=== PATIENT | male | born 1950 | race Caucasian/White ===

== ENCOUNTER 2024-05-03 12:11 | Inpatient (IN) ==
--- NOTE | 2024-05-03 12:52 | DR.GENAD ---
HPI Time Seen Time Seen by Provider: 05/03/24 12:51 PCP Primary Care Physician: Dr. Young/[facility] Complaint/Symptoms Chief Complaint:: Pt states that home hospice nurse placed a figueroa catheter this morning and afterwards he started having a large amount of bleeding from the penis. EMS estimates that pt has lost approximately 350ml blood. Denies any pain. Self Treatment fo Chief Complaint: Pt was given TXA 2gm IV x 1 by EMS prior to arrival. COVID-19 Coronavirus risk:travel/contact w/high risk person: No Has patient experienced Coronavirus symptoms: No Source History Provided: Patient and EMS Mode of Arrival Mode of Arrival: EMS Timing Onset of Chief Complaint: 05/03/24 PMH PMH Past Medical History: Yes Past Medical History: CHF and Hypertension Past Medical History Comment: afib Past Surgical History: Yes Past Surgical History Comment: pacemaker/defibrillator Family History History of Family Medical Conditions: No Social History Does patient currently use any type of tobacco product: No Have you used tobacco products in the last 12 months: No Type of Tobacco Use: None Does any household member use tobacco: No Alcohol Use: None Do you use any recreational Drugs:: No Lives With: Family Lives Where: Home Travel Risk Coronavirus risk:travel/contact w/high risk person: No Has patient experienced Coronavirus symptoms: No Infectious screening In the last 2 months have you had wt loss of >10#?: NO Have you had fever, night sweats or hemotysis?: No Have you traveled outside the country in the last 6 months?: No Isolation: Standard PE Vital Signs Vitals: Vital Signs Temperature 98.1 F Pulse Rate 82 Pulse Rate 79 Pulse Rate 83 Pulse Rate 79 Pulse Rate 84 Pulse Rate 78 Pulse Rate 76 Pulse Rate 74 Pulse Rate 78 Pulse Rate 81 Pulse Rate 97 Respiratory Rate 20 Blood Pressure 133/63 Blood Pressure 93/57 Blood Pressure 109/68 Blood Pressure 112/73 Blood Pressure 113/67 Blood Pressure 113/67 Blood Pressure 125/72 Blood Pressure 125/72 Blood Pressure 125/72 Blood Pressure 123/70 Blood Pressure 112/58 Blood Pressure 112/58 Blood Pressure 137/63 Blood Pressure 118/69 Blood Pressure 106/66 Blood Pressure 114/58 Blood Pressure 114/74 Blood Pressure 113/74 O2 Sat by Pulse Oximetry 77 O2 Sat by Pulse Oximetry 96 O2 Sat by Pulse Oximetry 96 O2 Sat by Pulse Oximetry 94 O2 Sat by Pulse Oximetry 94 O2 Sat by Pulse Oximetry 83 O2 Sat by Pulse Oximetry 94 O2 Sat by Pulse Oximetry 98 O2 Sat by Pulse Oximetry 97 O2 Sat by Pulse Oximetry 97 O2 Sat by Pulse Oximetry 96 O2 Sat by Pulse Oximetry 95 ROR Labs Reviewed 05/03/24 13:10 05/03/24 13:10 Laboratory: WBC 6.9 X10^3/uL (3.6-10.0) 05/03/24 13:10 RBC 4.16 X10^6/uL (4.7-6.0) L 05/03/24 13:10 Hgb 13.3 g/dL (13.5-18.0) L 05/03/24 13:10 Hct 39.5 % (42.0-54.0) L 05/03/24 13:10 MCV 95.1 fL (80.0-100.0) 05/03/24 13:10 MCH 31.9 pg (27.0-34.0) 05/03/24 13:10 MCHC 33.6 g/dL (33.0-35.0) 05/03/24 13:10 RDW 21.6 % (11.6-16.5) H 05/03/24 13:10 Plt Count 180 X10^3/uL (150.0-450.0) 05/03/24 13:10 Plt Count Comment Adequate (ADEQUATE) 05/03/24 13:10 MPV 8.3 fL (7.4-11.0) 05/03/24 13:10 Neut % (Auto) 63.6 % (42.0-75.0) 05/03/24 13:10 Lymph % (Auto) 16.5 % (21.0-51.0) L 05/03/24 13:10 [place] % (Auto) 17.7 % (0.0-13.0) H 05/03/24 13:10 Eos % (Auto) 1.2 % (0.9-2.9) 05/03/24 13:10 Baso % (Auto) 1.0 % (0.2-1.0) 05/03/24 13:10 Neut # (Auto) 4.4 x10^3/uL (2.2-4.8) 05/03/24 13:10 Lymph # (Auto) 1.1 X10^3/uL (1.3-2.9) L 05/03/24 13:10 [place] # (Auto) 1.2 x10^3/uL (0.3-0.8) H 05/03/24 13:10 Eos # (Auto) 0.1 x10^3/uL (0.0-0.2) 05/03/24 13:10 Baso # (Auto) 0.1 X10^3/uL (0.0-0.1) 05/03/24 13:10 Absolute Nucleated RBC 0.1 /100WBC 05/03/24 13:10 Plt Morphology Comment Normal (NORMAL) 05/03/24 13:10 RBC Morphology Abnormal (NORMAL) 05/03/24 13:10 Anisocytosis 1+ A 05/03/24 13:10 PT 26.8 SECONDS (11.8-14.3) 05/03/24 13:10 INR Target Range - 05/03/24 13:10 INR 2.58 (0.8-1.3) H 05/03/24 13:10 APTT 37.2 SECONDS (22.9-36.5) H 05/03/24 13:10 PTT Comment - 05/03/24 13:10 Sodium 137 mmol/L (136-145) 05/03/24 13:10 Corrected Sodium TNP 05/03/24 13:10 Potassium 4.6 mmol/L (3.5-5.1) 05/03/24 13:10 Chloride 98 mmol/L (98-107) 05/03/24 13:10 Carbon Dioxide 33.9 mmol/L (21-32) H 05/03/24 13:10 BUN 26 mg/dL (7-18) H 05/03/24 13:10 Creatinine 1.39 mg/dL (0.70-1.30) H 05/03/24 13:10 Est GFR (MDRD) Af Amer > 60 (>60) 05/03/24 13:10 Est GFR (MDRD) Non-Af 53 (>60) L 05/03/24 13:10 Glucose 83 mg/dL (65-99) 05/03/24 13:10 Calcium 8.8 mg/dL (8.5-10.1) 05/03/24 13:10 Corrected Calcium 9.4 mg/dL (8.5-10.1) 05/03/24 13:10 Total Bilirubin 5.00 mg/dL (0.2-1.0) H 05/03/24 13:10 AST 28 Units/L (15-37) 05/03/24 13:10 ALT 20 Units/L (12-78) 05/03/24 13:10 Alkaline Phosphatase 104 Units/L (46-116) 05/03/24 13:10 Total Protein 6.9 g/dL (6.4-8.2) 05/03/24 13:10 Albumin 3.3 g/dL (3.4-5.0) L 05/03/24 13:10 Globulin 3.6 g/dL (2.5-4.5) 05/03/24 13:10 Albumin/Globulin Ratio 0.9 Ratio (1.1-2.1) L 05/03/24 13:10 Specimen Type Clean catch urine 05/03/24 12:46 Urine Color Red (YELLOW) 05/03/24 12:46 Urine Appearance Cloudy (CLEAR) 05/03/24 12:46 Urine pH 7.0 (5.0 - 8.0) 05/03/24 12:46 Ur Specific [place] 1.010 (1.000-1.030) 05/03/24 12:46 Urine Protein 3+ (NEGATIVE) 05/03/24 12:46 Urine Glucose (UA) 1+ (NEGATIVE) 05/03/24 12:46 Urine Ketones Negative (NEGATIVE) 05/03/24 12:46 Urine Blood 5+ (NEGATIVE) 05/03/24 12:46 Urine Nitrite Negative (NEGATIVE) 05/03/24 12:46 Urine Bilirubin Negative (NEGATIVE) 05/03/24 12:46 Urine Urobilinogen Normal (NORMAL) 05/03/24 12:46 Ur Leukocyte Esterase 1+ (NEGATIVE) 05/03/24 12:46 Urine RBC Tntc /HPF (0-3) A 05/03/24 12:46 Urine WBC 0-2 /HPF (0-5) 05/03/24 12:46 Ur Squamous Epith Cells Rare /HPF (NEGATIVE) 05/03/24 12:46 Urine Bacteria Trace /HPF (NEGATIVE) 05/03/24 12:46 Ur Culture Indicated? No/not indicated 05/03/24 12:46 Opioid Opioid Risk Tool Age (Vega box if 16-45): No History of Preadolescent Sexual Abuse: No Total: 0 Total Score Risk Category: Low Risk Copyright: Robert WONG predicting aberrant behaviors Discharge Plan Diagnosis Discharge Problem: Urethral bleeding, CHF (congestive heart failure) Discharge Plan Patient Disposition: 09 ADMITTED INPATIENT Condition: Stable Orders to Discharge Patient Discharge Orders: Transfer (Routine); Ordered 05/03/24 Ordered By: LETHA COELHO
[2024-05-03 13:06] LABS: BILIRUBIN,URINE NEGATIVE (NEGATIVE); BLOOD/HEMOGLOBIN,URINE 5+ (NEGATIVE); GLUCOSE, URINE 1+ (NEGATIVE); KETONES,URINE NEGATIVE (NEGATIVE); LEUKOCYTE ESTERASE ,URINE 1+ (NEGATIVE); NITRITES,URINE NEGATIVE (NEGATIVE); PROTEIN,URINE 3+ (NEGATIVE); UROBILINOGEN,URINE NORMAL (NORMAL)
[2024-05-03 13:15] LABS: APPEARANCE,URINE CLOUDY (CLEAR); BACTERIA,URINE TRACE /HPF (NEGATIVE); COLOR,URINE RED (YELLOW); RBC,URINE TNTC /HPF (0-3); SQUAMOUS EPITHELIAL CELL,UR RARE /HPF (NEGATIVE)
[2024-05-03 13:19] LABS: BASOPHILS # (AUTO) 0.1 X10^3/uL (0.0-0.1); EOSINOPHILS # (AUTO) 0.1 x10^3/uL (0.0-0.2); EOSINOPHILS % (AUTO) 1.2 % (0.9-2.9); HEMATOCRIT 39.5 % (42.0-54.0); HEMOGLOBIN 13.3 g/dL (13.5-18.0); LYMPHOCYTES # (AUTO) 1.1 X10^3/uL (1.3-2.9); LYMPHOCYTES % (AUTO) 16.5 % (21.0-51.0); MEAN CORPUSCULAR HEMOGLOBIN 31.9 pg (27.0-34.0); MEAN CORPUSCULAR HGB CONC 33.6 g/dL (33.0-35.0); MEAN CORPUSCULAR VOLUME 95.1 fL (80.0-100.0); MEAN PLATELET VOLUME 8.3 fL (7.4-11.0); MONOCYTES # (AUTO) 1.2 x10^3/uL (0.3-0.8); MONOCYTES % (AUTO) 17.7 % (0.0-13.0); NEUTROPHILS # (AUTO) 4.4 x10^3/uL (2.2-4.8); NEUTROPHILS % (AUTO) 63.6 % (42.0-75.0); PLATELET COUNT 180 X10^3/uL (150.0-450.0); RED BLOOD COUNT 4.16 X10^6/uL (4.7-6.0); RED CELL DISTRIBUTION WIDTH 21.6 % (11.6-16.5); WHITE BLOOD COUNT 6.9 X10^3/uL (3.6-10.0)
[2024-05-03 13:28] LABS: INR 2.58 (0.8-1.3)
[2024-05-03 13:40] LABS: ALANINE AMINOTRANSFERASE 20 Units/L (12-78); ALBUMIN 3.3 g/dL (3.4-5.0); ALKALINE PHOSPHATASE 104 Units/L (46-116); ASPARTATE AMINO TRANSFERASE 28 Units/L (15-37); BLOOD UREA NITROGEN 26 mg/dL (7-18); CALCIUM 8.8 mg/dL (8.5-10.1); CARBON DIOXIDE 33.9 mmol/L (21-32); CHLORIDE 98 mmol/L (98-107); COR CA(FOR HYPOALB) 9.4 mg/dL (8.5-10.1); CREATININE 1.39 mg/dL (0.70-1.30); GLUCOSE 83 mg/dL (65-99); POTASSIUM 4.6 mmol/L (3.5-5.1); SODIUM 137 mmol/L (136-145); TOTAL PROTEIN 6.9 g/dL (6.4-8.2); eGFR NON BLACK RACES 53 (>60)
[2024-05-03 13:46] LABS: PLATELET MORPHOLOGY COMMENT NORMAL (NORMAL)
[2024-05-03 13:47] LABS: ANISOCYTOSIS 1+
[2024-05-03] MEDS: LASIX IVP ONE (16:29)
[2024-05-03 18:21] VITALS: BMI 29.9
[2024-05-04 04:32] LABS: BASOPHILS % (AUTO) 0.8 % (0.2-1.0); EOSINOPHILS # (AUTO) 0.1 x10^3/uL (0.0-0.2); EOSINOPHILS % (AUTO) 1.8 % (0.9-2.9); HEMATOCRIT 37.4 % (42.0-54.0); HEMOGLOBIN 12.4 g/dL (13.5-18.0); LYMPHOCYTES # (AUTO) 0.9 X10^3/uL (1.3-2.9); LYMPHOCYTES % (AUTO) 15.5 % (21.0-51.0); MEAN CORPUSCULAR HEMOGLOBIN 31.3 pg (27.0-34.0); MEAN CORPUSCULAR VOLUME 94.9 fL (80.0-100.0); MEAN PLATELET VOLUME 8.4 fL (7.4-11.0); MONOCYTES # (AUTO) 1.3 x10^3/uL (0.3-0.8); MONOCYTES % (AUTO) 20.6 % (0.0-13.0); NEUTROPHILS # (AUTO) 3.7 x10^3/uL (2.2-4.8); NEUTROPHILS % (AUTO) 61.3 % (42.0-75.0); PLATELET COUNT 186 X10^3/uL (150.0-450.0); RED BLOOD COUNT 3.94 X10^6/uL (4.7-6.0); RED CELL DISTRIBUTION WIDTH 21.6 % (11.6-16.5); WHITE BLOOD COUNT 6.1 X10^3/uL (3.6-10.0)
[2024-05-04 04:41] LABS: ALANINE AMINOTRANSFERASE 16 Units/L (12-78); ALKALINE PHOSPHATASE 99 Units/L (46-116); ASPARTATE AMINO TRANSFERASE 19 Units/L (15-37); BLOOD UREA NITROGEN 24 mg/dL (7-18); CALCIUM 8.5 mg/dL (8.5-10.1); CARBON DIOXIDE 36.2 mmol/L (21-32); CHLORIDE 100 mmol/L (98-107); COR CA(FOR HYPOALB) 9.3 mg/dL (8.5-10.1); CREATININE 1.43 mg/dL (0.70-1.30); GLUCOSE 80 mg/dL (65-99); MAGNESIUM 2.5 mg/dL (2.0-2.9); SODIUM 139 mmol/L (136-145); TOTAL PROTEIN 6.3 g/dL (6.4-8.2); eGFR NON BLACK RACES 52 (>60)
[2024-05-04 05:17] LABS: ANISOCYTOSIS 1+; PLATELET MORPHOLOGY COMMENT NORMAL (NORMAL)
[2024-05-04] MEDS: LEXAPRO PO SCH (10:28)
[2024-05-04] MEDS: LEXAPRO ONE (10:33)
--- NOTE | 2024-05-04 11:41 | DR.H&P ---
H&P History & Physical for Day of: H&P Date: 05/04/24 Chief Complaint Chief Complaint: penile bleeding, hematuria History of Present Illness History of Present Illness: Mr Butcher is a 73y/o male with a PMH of CHF, cardiomyopathy, HTN, HLD, Type 2 DM, Chronic anti-coagulation use presented with penile bleeding and hematuria. Patient is currently on hospice and was noted to have large blood clots in the urine as the nurse was placing a figueroa at home. He was sent to the ER for evaluation. Patient is a very poor historian. He was seen here on 04/05/24 for scrotal swelling and bleeding. He was transferred to [place] at the time. He is not sure if he was suppose to follow up with Urology. He is not sure what was done there or what was the cause of the bleeding. ER work up showed chronic LE pitting edema, Cr 1.43. INR 2.58. UA was negative for infection. He was admitted for hematuria and CHF exacerbation. He was given one dose of lasix. Patient's BP has been low-normal. He currently has a PureWick catheter and urine is dark brown/red in color. Labs/imaging: -WBC 6.1 Hgb 12.4 BUN/Cr 24/1.43 INR 2.58 Plan: Admit to med-surg. Monitor UOP and bleeding. No active penile bleeding at this time. Hold Xarelto. Hold anti-hypertensives due to low BP. Replace electrolytes as per protocol. Check BNP and CXR. Wean O2 as tolerated. Monitor AM labs/imaging. Past Medical History Past Medical History: CHF and Hypertension Social History Does patient currently use any type of tobacco product: No Have you used tobacco products in the last 12 months: No Type of Tobacco Use: None Does any household member use tobacco: No Alcohol Use: None Drug Use: None Medications Home Medications: Home Medications Medication Instructions Recorded Confirmed Type bumetanide 1 mg tablet 1 mg PO BID 04/05/24 05/03/24 History carvedilol 3.125 mg tablet 3.125 mg PO BID 04/05/24 05/03/24 History dapagliflozin propanediol 10 mg 10 mg PO QDAY 04/05/24 05/03/24 History tablet (Farxiga) escitalopram oxalate 10 mg tablet 10 mg PO QDAY 04/05/24 05/03/24 History rivaroxaban 20 mg tablet (Xarelto) 20 mg PO QDAY 04/05/24 05/03/24 History sacubitril 49 mg-valsartan 51 mg 1 tab PO BID 04/05/24 05/03/24 History tablet (Entresto) Allergies Allergies Allergy/AdvReac Type Severity Reaction Status Date / Time No Known Allergies Allergy Verified 05/03/24 12:41 Labs 05/04/24 04:10 05/04/24 04:10 Labs: Laboratory WBC 6.1 X10^3/uL (3.6-10.0) 05/04/24 04:10 RBC 3.94 X10^6/uL (4.7-6.0) L 05/04/24 04:10 Hgb 12.4 g/dL (13.5-18.0) L 05/04/24 04:10 Hct 37.4 % (42.0-54.0) L 05/04/24 04:10 MCV 94.9 fL (80.0-100.0) 05/04/24 04:10 MCH 31.3 pg (27.0-34.0) 05/04/24 04:10 MCHC 33.0 g/dL (33.0-35.0) 05/04/24 04:10 RDW 21.6 % (11.6-16.5) H 05/04/24 04:10 Plt Count 186 X10^3/uL (150.0-450.0) 05/04/24 04:10 Plt Count Comment Adequate (ADEQUATE) 05/04/24 04:10 MPV 8.4 fL (7.4-11.0) 05/04/24 04:10 Neut % (Auto) 61.3 % (42.0-75.0) 05/04/24 04:10 Lymph % (Auto) 15.5 % (21.0-51.0) L 05/04/24 04:10 [place] % (Auto) 20.6 % (0.0-13.0) H 05/04/24 04:10 Eos % (Auto) 1.8 % (0.9-2.9) 05/04/24 04:10 Baso % (Auto) 0.8 % (0.2-1.0) 05/04/24 04:10 Neut # (Auto) 3.7 x10^3/uL (2.2-4.8) 05/04/24 04:10 Lymph # (Auto) 0.9 X10^3/uL (1.3-2.9) L 05/04/24 04:10 [place] # (Auto) 1.3 x10^3/uL (0.3-0.8) H 05/04/24 04:10 Eos # (Auto) 0.1 x10^3/uL (0.0-0.2) 05/04/24 04:10 Baso # (Auto) 0.0 X10^3/uL (0.0-0.1) 05/04/24 04:10 Absolute Nucleated RBC 0.1 /100WBC 05/04/24 04:10 Total Counted 100 05/04/24 04:10 Neutrophils % (Manual) 62 % (39-76) 05/04/24 04:10 Lymphocytes % (Manual) 20 % (13-43) 05/04/24 04:10 Monocytes % (Manual) 16 % (4-9) H 05/04/24 04:10 Eosinophils % (Manual) 2 % (0-6) 05/04/24 04:10 Plt Morphology Comment Normal (NORMAL) 05/04/24 04:10 RBC Morphology Abnormal (NORMAL) 05/04/24 04:10 Anisocytosis 1+ A 05/04/24 04:10 PT 26.8 SECONDS (11.8-14.3) 05/03/24 13:10 INR Target Range - 05/03/24 13:10 INR 2.58 (0.8-1.3) H 05/03/24 13:10 APTT 37.2 SECONDS (22.9-36.5) H 05/03/24 13:10 PTT Comment - 05/03/24 13:10 Sodium 139 mmol/L (136-145) 05/04/24 04:10 Corrected Sodium TNP 05/04/24 04:10 Potassium 4.0 mmol/L (3.5-5.1) 05/04/24 04:10 Chloride 100 mmol/L (98-107) 05/04/24 04:10 Carbon Dioxide 36.2 mmol/L (21-32) H 05/04/24 04:10 BUN 24 mg/dL (7-18) H 05/04/24 04:10 Creatinine 1.43 mg/dL (0.70-1.30) H 05/04/24 04:10 Est GFR (MDRD) Af Amer > 60 (>60) 05/04/24 04:10 Est GFR (MDRD) Non-Af 52 (>60) L 05/04/24 04:10 Glucose 80 mg/dL (65-99) 05/04/24 04:10 Calcium 8.5 mg/dL (8.5-10.1) 05/04/24 04:10 Corrected Calcium 9.3 mg/dL (8.5-10.1) 05/04/24 04:10 Magnesium 2.5 mg/dL (2.0-2.9) 05/04/24 04:10 Total Bilirubin 4.90 mg/dL (0.2-1.0) H 05/04/24 04:10 AST 19 Units/L (15-37) 05/04/24 04:10 ALT 16 Units/L (12-78) 05/04/24 04:10 Alkaline Phosphatase 99 Units/L (46-116) 05/04/24 04:10 Total Protein 6.3 g/dL (6.4-8.2) L 05/04/24 04:10 Albumin 3.0 g/dL (3.4-5.0) L 05/04/24 04:10 Globulin 3.3 g/dL (2.5-4.5) 05/04/24 04:10 Albumin/Globulin Ratio 0.9 Ratio (1.1-2.1) L 05/04/24 04:10 Specimen Type Clean catch urine 05/03/24 12:46 Urine Color Red (YELLOW) 05/03/24 12:46 Urine Appearance Cloudy (CLEAR) 05/03/24 12:46 Urine pH 7.0 (5.0 - 8.0) 05/03/24 12:46 Ur Specific [place] 1.010 (1.000-1.030) 05/03/24 12:46 Urine Protein 3+ (NEGATIVE) 05/03/24 12:46 Urine Glucose (UA) 1+ (NEGATIVE) 05/03/24 12:46 Urine Ketones Negative (NEGATIVE) 05/03/24 12:46 Urine Blood 5+ (NEGATIVE) 05/03/24 12:46 Urine Nitrite Negative (NEGATIVE) 05/03/24 12:46 Urine Bilirubin Negative (NEGATIVE) 05/03/24 12:46 Urine Urobilinogen Normal (NORMAL) 05/03/24 12:46 Ur Leukocyte Esterase 1+ (NEGATIVE) 05/03/24 12:46 Urine RBC Tntc /HPF (0-3) A 05/03/24 12:46 Urine WBC 0-2 /HPF (0-5) 05/03/24 12:46 Ur Squamous Epith Cells Rare /HPF (NEGATIVE) 05/03/24 12:46 Urine Bacteria Trace /HPF (NEGATIVE) 05/03/24 12:46 Ur Culture Indicated? No/not indicated 05/03/24 12:46 Review of Systems Constitutional: No Symptoms Reported Respiratory: Shortness of Breath Cardiovascular: Edema Gastrointestinal: No Symptoms Reported Genitourinary: Hematuria Musculoskeletal: No Symptoms Reported Skin: No Symptoms Reported Neurological: No Symptoms Reported Physical Exam Vital Signs: Vital Signs Temperature 97.6 F Temperature 97.3 F Pulse Rate [Left Brachial] 71 Pulse Rate [Left Brachial] 77 Respiratory Rate 18 Respiratory Rate 19 Blood Pressure [Left Arm] 104/59 Blood Pressure [Left Arm] 96/62 O2 Sat by Pulse Oximetry 90 O2 Sat by Pulse Oximetry 95 Oriented: Normal Respiratory: Diminished Throughout Cardiovascular: Normal and Edema Auscultation: Bowel Sounds: Normal Palpation: Normal Tenderness: Normal Skin: Normal Musculoskeletal: Normal Psychiatric: Normal Mood Description: Calm Affect: Normal Speech Pattern: Clear and Appropriate Assessment/Plan (1) Hypotension: Qualifiers: Hypotension type: unspecified hypotension type Qualified Code(s): I95.9 - Hypotension, unspecified Status: Acute (2) Hematuria: Qualifiers: Hematuria type: unspecified type Qualified Code(s): R31.9 - Hematuria, unspecified Status: Acute (3) CHF (congestive heart failure): Qualifiers: Heart failure type: unspecified Heart failure chronicity: unspecified Qualified Code(s): I50.9 - Heart failure, unspecified Status: Chronic (4) Current use of watermaster anticoagulation: Status: Chronic Review H&P Reviewed: Yes Patient was examined?: Yes
[2024-05-05 04:32] LABS: BASOPHILS # (AUTO) 0.1 X10^3/uL (0.0-0.1); BASOPHILS % (AUTO) 0.9 % (0.2-1.0); EOSINOPHILS # (AUTO) 0.1 x10^3/uL (0.0-0.2); EOSINOPHILS % (AUTO) 1.6 % (0.9-2.9); HEMATOCRIT 37.4 % (42.0-54.0); HEMOGLOBIN 12.5 g/dL (13.5-18.0); LYMPHOCYTES % (AUTO) 14.7 % (21.0-51.0); MEAN CORPUSCULAR HEMOGLOBIN 31.8 pg (27.0-34.0); MEAN CORPUSCULAR HGB CONC 33.3 g/dL (33.0-35.0); MEAN CORPUSCULAR VOLUME 95.5 fL (80.0-100.0); MEAN PLATELET VOLUME 8.2 fL (7.4-11.0); MONOCYTES # (AUTO) 1.2 x10^3/uL (0.3-0.8); MONOCYTES % (AUTO) 16.8 % (0.0-13.0); NEUTROPHILS # (AUTO) 4.5 x10^3/uL (2.2-4.8); PLATELET COUNT 188 X10^3/uL (150.0-450.0); RED BLOOD COUNT 3.92 X10^6/uL (4.7-6.0); RED CELL DISTRIBUTION WIDTH 21.6 % (11.6-16.5); WHITE BLOOD COUNT 6.9 X10^3/uL (3.6-10.0)
[2024-05-05 04:33] LABS: INR 1.53 (0.8-1.3)
[2024-05-05 04:41] LABS: ALANINE AMINOTRANSFERASE 15 Units/L (12-78); ALKALINE PHOSPHATASE 97 Units/L (46-116); ASPARTATE AMINO TRANSFERASE 17 Units/L (15-37); BLOOD UREA NITROGEN 21 mg/dL (7-18); CALCIUM 8.5 mg/dL (8.5-10.1); CARBON DIOXIDE 35.9 mmol/L (21-32); CHLORIDE 99 mmol/L (98-107); COR CA(FOR HYPOALB) 9.3 mg/dL (8.5-10.1); CREATININE 1.28 mg/dL (0.70-1.30); GLUCOSE 81 mg/dL (65-99); SODIUM 140 mmol/L (136-145); TOTAL PROTEIN 6.4 g/dL (6.4-8.2); eGFR NON BLACK RACES 59 (>60)
[2024-05-05 05:34] LABS: ANISOCYTOSIS 1+; BURR CELLS SLIGHT; PLATELET MORPHOLOGY COMMENT NORMAL (NORMAL); TEAR DROP CELLS 1+
[2024-05-05] MEDS ORDERED: LEXAPRO ONE (07:51)
--- NOTE | 2024-05-05 12:55 | NOTE.SOAP ---
Soap Note Note for Day of Date of Exam: 05/05/24 Subjective Data Subjective Data: Patient seen for morning rounds. Urine is clearing up but still dark orange. No catheter, has a pure wick. Patient denies any complaints other than his left inguinal hernia. He would like to see a surgeon. Does report that he is on hospice for heart failure but cannot remember his EF. Also cannot remember who his PCP is. Objective Data Objective Data: DBD, WN, elderly male in NAD. Head NCAT. Hearing intact conversation. Speech is unlabored and clear. Bilateral breath sounds are appropriate. Heart regular rate and rhythm. Bowel sounds are present with a nontender, nondistended abdomen. Mood and affect appropriate. Does have some memory issues but is capable of making decisions. Assessment Assessment: 1. Acute on chronic systolic CHF exacerbation. Continue diuresis. Most recent imaging showing bilateral pleural effusions that are likely chronic. Need to discuss with hospice nurse. 2. Large, left inguinal hernia-chronic. No surgeon on-call this weekend due to holiday. Is not incarcerated. Monitor for now. Given his hospice status I do not think he is a surgical candidate, but patient is requesting evaluation by surgeon when available. 3. Gross hematuria. Infectious/traumatic prostatitis versus urethral injury. He has been on chronic anticoagulant therapy (Xarelto) due to his A-fib. Is currently being held. It is clearing up. Continue purewick.
[2024-05-05] MEDS: COREG TAB 3.125 MG PO SCH (21:03)
[2024-05-05] MEDS: BUMEX TAB 1 MG PO SCH (21:03)
[2024-05-05] MEDS: ENTRESTO 49/51 MG TABLET PO SCH (21:03)
[2024-05-06 06:00] LABS: BASOPHILS # (AUTO) 0.1 X10^3/uL (0.0-0.1); BASOPHILS % (AUTO) 0.8 % (0.2-1.0); EOSINOPHILS # (AUTO) 0.1 x10^3/uL (0.0-0.2); EOSINOPHILS % (AUTO) 2.2 % (0.9-2.9); HEMATOCRIT 36.5 % (42.0-54.0); HEMOGLOBIN 12.3 g/dL (13.5-18.0); LYMPHOCYTES % (AUTO) 17.3 % (21.0-51.0); MEAN CORPUSCULAR HEMOGLOBIN 32.2 pg (27.0-34.0); MEAN CORPUSCULAR HGB CONC 33.7 g/dL (33.0-35.0); MEAN CORPUSCULAR VOLUME 95.5 fL (80.0-100.0); MEAN PLATELET VOLUME 8.3 fL (7.4-11.0); NEUTROPHILS # (AUTO) 3.8 x10^3/uL (2.2-4.8); NEUTROPHILS % (AUTO) 63.7 % (42.0-75.0); PLATELET COUNT 164 X10^3/uL (150.0-450.0); RED BLOOD COUNT 3.82 X10^6/uL (4.7-6.0); RED CELL DISTRIBUTION WIDTH 21.7 % (11.6-16.5)
[2024-05-06 06:27] LABS: ALANINE AMINOTRANSFERASE 14 Units/L (12-78); ALBUMIN 2.9 g/dL (3.4-5.0); ALKALINE PHOSPHATASE 98 Units/L (46-116); ASPARTATE AMINO TRANSFERASE 17 Units/L (15-37); BLOOD UREA NITROGEN 18 mg/dL (7-18); CALCIUM 8.3 mg/dL (8.5-10.1); CARBON DIOXIDE 34.8 mmol/L (21-32); CHLORIDE 99 mmol/L (98-107); COR CA(FOR HYPOALB) 9.2 mg/dL (8.5-10.1); CREATININE 1.08 mg/dL (0.70-1.30); GLUCOSE 86 mg/dL (65-99); POTASSIUM 3.6 mmol/L (3.5-5.1); SODIUM 139 mmol/L (136-145); TOTAL PROTEIN 6.5 g/dL (6.4-8.2); eGFR NON BLACK RACES > 60 (>60)
[2024-05-06 06:36] LABS: ANISOCYTOSIS 1+; PLATELET MORPHOLOGY COMMENT NORMAL (NORMAL); TARGET CELLS PRESENT
--- NOTE | 2024-05-06 06:56 | RAD ---
EXAM:Portable AP chestHISTORY:SOBCOMPARISON:04/05/2024 r.br.br.br dilatation. The retrocardiac left lower lung is obscured by the large heart; airspace disease or pleural fluid may be present.IMPRESSION:Cardiomegaly with pulmonary venous congestion consistent with CHF. Incomplete evaluation of left lower lung, see above.THIS IS AN ELECTRONICALLY VERIFIED FINAL [id number]/06/2024 6:53 AM - Electronically signed by Jose Angel Sellers MD
[2024-05-06] MEDS: CONSULT PHARMACY - POTASSIUM & MAGNESIUM XX SCH ×2 (08:16)
[2024-05-06] MEDS ORDERED: LEXAPRO ONE (08:19)
[2024-05-06] MEDS: FARXIGA PO SCH (09:55)
[2024-05-06] MEDS: K-DUR TAB 20 MEQ PO SCH (09:56)
--- NOTE | 2024-05-06 18:35 | NOTE.SOAP ---
Soap Note Note for Day of Date of Exam: 05/06/24 Subjective Data Subjective Data: Patient reportedly has revoked hospice. He does want to talk to a surgeon on Wednesday. Family is hoping to get him into rehab and possibly long-term placement. EF is approximately 19% per daughter. Patient denies complaints this morning. Nursing denies any overnight events. Objective Data Objective Data: Elderly male in no acute distress. Hearing intact conversation. Head NCAT. Heart regular rate and rhythm. Belly soft, NT, ND, with bowel sounds present. Large left inguinal hernia present. Assessment Assessment: 1. Acute on chronic systolic heart failure-BNP elevated again today. Legs appear little more swollen. Continue Bumex. Hold Entresto due to low BP this am. 2. Large left inguinal hernia-stable. Surgery consult on Wednesday. 3. PAF-chronic. Hold Xarelto for now due to gross hematuria. 4. Gross hematuria-possible urethral injury. Urine still dark orange color but no blood appreciated. Continue monitoring. Patient with good urinary output so we will avoid inserting catheter
[2024-05-07 06:21] LABS: BASOPHILS # (AUTO) 0.1 X10^3/uL (0.0-0.1); BASOPHILS % (AUTO) 0.9 % (0.2-1.0); EOSINOPHILS # (AUTO) 0.2 x10^3/uL (0.0-0.2); EOSINOPHILS % (AUTO) 3.3 % (0.9-2.9); HEMATOCRIT 37.7 % (42.0-54.0); HEMOGLOBIN 12.6 g/dL (13.5-18.0); LYMPHOCYTES # (AUTO) 1.1 X10^3/uL (1.3-2.9); LYMPHOCYTES % (AUTO) 17.8 % (21.0-51.0); MEAN CORPUSCULAR HEMOGLOBIN 32.1 pg (27.0-34.0); MEAN CORPUSCULAR HGB CONC 33.5 g/dL (33.0-35.0); MEAN CORPUSCULAR VOLUME 95.7 fL (80.0-100.0); MEAN PLATELET VOLUME 8.7 fL (7.4-11.0); MONOCYTES # (AUTO) 0.9 x10^3/uL (0.3-0.8); MONOCYTES % (AUTO) 15.2 % (0.0-13.0); NEUTROPHILS # (AUTO) 3.8 x10^3/uL (2.2-4.8); NEUTROPHILS % (AUTO) 62.8 % (42.0-75.0); PLATELET COUNT 187 X10^3/uL (150.0-450.0); RED BLOOD COUNT 3.94 X10^6/uL (4.7-6.0); RED CELL DISTRIBUTION WIDTH 21.7 % (11.6-16.5)
[2024-05-07 06:32] LABS: ALANINE AMINOTRANSFERASE 16 Units/L (12-78); ALBUMIN 3.2 g/dL (3.4-5.0); ALKALINE PHOSPHATASE 107 Units/L (46-116); ASPARTATE AMINO TRANSFERASE 17 Units/L (15-37); BLOOD UREA NITROGEN 18 mg/dL (7-18); CALCIUM 8.4 mg/dL (8.5-10.1); CARBON DIOXIDE 35.7 mmol/L (21-32); CHLORIDE 99 mmol/L (98-107); CREATININE 1.19 mg/dL (0.70-1.30); GLUCOSE 75 mg/dL (65-99); POTASSIUM 3.9 mmol/L (3.5-5.1); SODIUM 139 mmol/L (136-145); TOTAL PROTEIN 7.1 g/dL (6.4-8.2); eGFR NON BLACK RACES > 60 (>60)
[2024-05-07 07:02] LABS: ANISOCYTOSIS 1+; PLATELET MORPHOLOGY COMMENT NORMAL (NORMAL)
[2024-05-07 10:05] LABS: BILIRUBIN,URINE NEGATIVE (NEGATIVE); BLOOD/HEMOGLOBIN,URINE 2+ (NEGATIVE); GLUCOSE, URINE 4+ (NEGATIVE); KETONES,URINE NEGATIVE (NEGATIVE); LEUKOCYTE ESTERASE ,URINE 2+ (NEGATIVE); NITRITES,URINE NEGATIVE (NEGATIVE); PROTEIN,URINE 1+ (NEGATIVE); UROBILINOGEN,URINE 1+ (NORMAL)
[2024-05-07 10:06] LABS: APPEARANCE,URINE SLIGHTLY HAZY (CLEAR); COLOR,URINE YELLOW (YELLOW)
[2024-05-07 10:14] LABS: BACTERIA,URINE 2+ /HPF (NEGATIVE); RBC,URINE 0-2 /HPF (0-3); SQUAMOUS EPITHELIAL CELL,UR FEW /HPF (NEGATIVE)
[2024-05-07] MEDS ORDERED: LEXAPRO ONE (10:16)
[2024-05-07] MEDS ORDERED: NS 250 ML IV 250 ML IV ONE (20:11)
[2024-05-07] MEDS: ROCEPHIN VIAL 1 GRAM 1 G in NS 100 ML IV 100 ML IV SCH (20:24)
[2024-05-07] MEDS: NS 250 ML IV 250 ML IV PRN (20:24)
[2024-05-08 06:17] LABS: BASOPHILS # (AUTO) 0.1 X10^3/uL (0.0-0.1); EOSINOPHILS # (AUTO) 0.1 x10^3/uL (0.0-0.2); EOSINOPHILS % (AUTO) 1.8 % (0.9-2.9); HEMATOCRIT 37.9 % (42.0-54.0); HEMOGLOBIN 12.5 g/dL (13.5-18.0); LYMPHOCYTES % (AUTO) 16.8 % (21.0-51.0); MEAN CORPUSCULAR HEMOGLOBIN 31.6 pg (27.0-34.0); MEAN CORPUSCULAR VOLUME 95.6 fL (80.0-100.0); MEAN PLATELET VOLUME 8.8 fL (7.4-11.0); MONOCYTES % (AUTO) 17.1 % (0.0-13.0); NEUTROPHILS # (AUTO) 3.8 x10^3/uL (2.2-4.8); NEUTROPHILS % (AUTO) 63.3 % (42.0-75.0); PLATELET COUNT 180 X10^3/uL (150.0-450.0); RED BLOOD COUNT 3.96 X10^6/uL (4.7-6.0); RED CELL DISTRIBUTION WIDTH 21.2 % (11.6-16.5)
[2024-05-08 06:37] LABS: ANISOCYTOSIS 1+; PLATELET MORPHOLOGY COMMENT NORMAL (NORMAL)
[2024-05-08 06:40] LABS: ALANINE AMINOTRANSFERASE 14 Units/L (12-78); ALBUMIN 3.2 g/dL (3.4-5.0); ALKALINE PHOSPHATASE 105 Units/L (46-116); ASPARTATE AMINO TRANSFERASE 18 Units/L (15-37); BLOOD UREA NITROGEN 19 mg/dL (7-18); CALCIUM 8.4 mg/dL (8.5-10.1); CARBON DIOXIDE 32.7 mmol/L (21-32); CHLORIDE 97 mmol/L (98-107); GLUCOSE 71 mg/dL (65-99); POTASSIUM 3.7 mmol/L (3.5-5.1); SODIUM 137 mmol/L (136-145); eGFR NON BLACK RACES > 60 (>60)
[2024-05-08] MEDS ORDERED: CONSULT PHARMACY - POTASSIUM & MAGNESIUM XX SCH (07:00)
[2024-05-08] MEDS ORDERED: LEXAPRO ONE (08:38)
--- NOTE | 2024-05-08 08:48 | DR.PROGNOT ---
HOSPITAL PROGRESS NOTE Progress Note for Day of: Progress Note Date: 05/08/24 Chief Complaint Chief Complaint: Patient denies any significant abdominal pain, no nausea or vomiting. CAT scan a month ago showed large incarcerated left inguinal hernia with the sigmoid colon within the hernia sac, no bowel obstruction. Has another incarcerated umbilical hernia which contained omentum, no evidence of strangulation. White count is normal. Patient is afebrile with soft nontender abdomen and good bowel sounds. Past Medical Family Social History Allergies: Allergies No Known Allergies Allergy (Verified 05/03/24 12:41) Review Of Systems ROS: No change since H&P Vital Signs Vital Signs: Vital Signs Temperature 98.5 F Pulse Rate [Left Brachial] 79 Respiratory Rate 18 Blood Pressure [Left Arm] 110/61 O2 Sat by Pulse Oximetry 94 Physical Exam Oriented: Normal Cardiovascular: Normal and Edema GI:Auscultation: Normal GI:Palpation: Normal and Other (Incarcerated left inguinal hernia with mild tenderness, bowel sounds present.) GI: Tenderness: Normal Skin: Normal Musculoskeletal: Normal Psychiatric: Normal Mood Description: Calm Affect: Normal Speech Pattern: Clear and Appropriate Laboratory and Diagnostics 05/08/24 05:15 05/08/24 05:15 Labs: Laboratory WBC 6.0 X10^3/uL (3.6-10.0) 05/08/24 05:15 RBC 3.96 X10^6/uL (4.7-6.0) L 05/08/24 05:15 Hgb 12.5 g/dL (13.5-18.0) L 05/08/24 05:15 Hct 37.9 % (42.0-54.0) L 05/08/24 05:15 MCV 95.6 fL (80.0-100.0) 05/08/24 05:15 MCH 31.6 pg (27.0-34.0) 05/08/24 05:15 MCHC 33.0 g/dL (33.0-35.0) 05/08/24 05:15 RDW 21.2 % (11.6-16.5) H 05/08/24 05:15 Plt Count 180 X10^3/uL (150.0-450.0) 05/08/24 05:15 Plt Count Comment Adequate (ADEQUATE) 05/08/24 05:15 MPV 8.8 fL (7.4-11.0) 05/08/24 05:15 Neut % (Auto) 63.3 % (42.0-75.0) 05/08/24 05:15 Lymph % (Auto) 16.8 % (21.0-51.0) L 05/08/24 05:15 [place] % (Auto) 17.1 % (0.0-13.0) H 05/08/24 05:15 Eos % (Auto) 1.8 % (0.9-2.9) 05/08/24 05:15 Baso % (Auto) 1.0 % (0.2-1.0) 05/08/24 05:15 Neut # (Auto) 3.8 x10^3/uL (2.2-4.8) 05/08/24 05:15 Lymph # (Auto) 1.0 X10^3/uL (1.3-2.9) L 05/08/24 05:15 [place] # (Auto) 1.0 x10^3/uL (0.3-0.8) H 05/08/24 05:15 Eos # (Auto) 0.1 x10^3/uL (0.0-0.2) 05/08/24 05:15 Baso # (Auto) 0.1 X10^3/uL (0.0-0.1) 05/08/24 05:15 Absolute Nucleated RBC 0.1 /100WBC 05/08/24 05:15 Total Counted 100 05/04/24 04:10 Neutrophils % (Manual) 62 % (39-76) 05/04/24 04:10 Lymphocytes % (Manual) 20 % (13-43) 05/04/24 04:10 Monocytes % (Manual) 16 % (4-9) H 05/04/24 04:10 Eosinophils % (Manual) 2 % (0-6) 05/04/24 04:10 Plt Morphology Comment Normal (NORMAL) 05/08/24 05:15 RBC Morphology Abnormal (NORMAL) 05/08/24 05:15 Anisocytosis 1+ A 05/08/24 05:15 Target Cells Present 05/06/24 05:07 Tear Drop Cells 1+ A 05/05/24 04:09 [place] Cells Slight A 05/05/24 04:09 PT 18.0 SECONDS (11.8-14.3) 05/05/24 04:09 INR Target Range - 05/05/24 04:09 INR 1.53 (0.8-1.3) H 05/05/24 04:09 APTT 37.2 SECONDS (22.9-36.5) H 05/03/24 13:10 PTT Comment - 05/03/24 13:10 Sodium 137 mmol/L (136-145) 05/08/24 05:15 Corrected Sodium TNP 05/08/24 05:15 Potassium 3.7 mmol/L (3.5-5.1) 05/08/24 05:15 Chloride 97 mmol/L (98-107) L 05/08/24 05:15 Carbon Dioxide 32.7 mmol/L (21-32) H 05/08/24 05:15 BUN 19 mg/dL (7-18) H 05/08/24 05:15 Creatinine 1.20 mg/dL (0.70-1.30) 05/08/24 05:15 Est GFR (MDRD) Af Amer > 60 (>60) 05/08/24 05:15 Est GFR (MDRD) Non-Af > 60 (>60) 05/08/24 05:15 Glucose 71 mg/dL (65-99) 05/08/24 05:15 Calcium 8.4 mg/dL (8.5-10.1) L 05/08/24 05:15 Corrected Calcium 9.0 mg/dL (8.5-10.1) 05/08/24 05:15 Magnesium 2.3 mg/dL (2.0-2.9) 05/06/24 05:07 Total Bilirubin 3.80 mg/dL (0.2-1.0) H 05/08/24 05:15 AST 18 Units/L (15-37) 05/08/24 05:15 ALT 14 Units/L (12-78) 05/08/24 05:15 Alkaline Phosphatase 105 Units/L (46-116) 05/08/24 05:15 B-Natriuretic Peptide 3290 pg/mL (0-79) H 05/08/24 05:15 Total Protein 7.0 g/dL (6.4-8.2) 05/08/24 05:15 Albumin 3.2 g/dL (3.4-5.0) L 05/08/24 05:15 Globulin 3.8 g/dL (2.5-4.5) 05/08/24 05:15 Albumin/Globulin Ratio 0.8 Ratio (1.1-2.1) L 05/08/24 05:15 Specimen Type Clean catch urine 05/07/24 09:59 Urine Color Yellow (YELLOW) 05/07/24 09:59 Urine Appearance Slightly hazy (CLEAR) 05/07/24 09:59 Urine pH 6.0 (5.0 - 8.0) 05/07/24 09:59 Ur Specific [place] 1.020 (1.000-1.030) 05/07/24 09:59 Urine Protein 1+ (NEGATIVE) 05/07/24 09:59 Urine Glucose (UA) 4+ (NEGATIVE) 05/07/24 09:59 Urine Ketones Negative (NEGATIVE) 05/07/24 09:59 Urine Blood 2+ (NEGATIVE) 05/07/24 09:59 Urine Nitrite Negative (NEGATIVE) 05/07/24 09:59 Urine Bilirubin Negative (NEGATIVE) 05/07/24 09:59 Urine Urobilinogen 1+ (NORMAL) 05/07/24 09:59 Ur Leukocyte Esterase 2+ (NEGATIVE) 05/07/24 09:59 Urine RBC 0-2 /HPF (0-3) 05/07/24 09:59 Urine WBC 3-5 /HPF (0-5) 05/07/24 09:59 Ur Squamous Epith Cells Few /HPF (NEGATIVE) 05/07/24 09:59 Amorphous Sediment 2+ /HPF (NEGATIVE) 05/07/24 09:59 Urine Bacteria 2+ /HPF (NEGATIVE) 05/07/24 09:59 Urine Mucus Rare /HPF (NEGATIVE) 05/07/24 09:59 Ur Culture Indicated? Yes/culture set up 05/07/24 09:59 Stl Occult Blood (IFOB) Negative (NEGATIVE) 05/07/24 18:10 Assessment and Plan 1: In addition to the patient medical history , he has incarcerated left inguinal hernia, no evidence of bowel obstruction or peritonitis. Has incarcerated umbilical hernia which is recurrent and contains omentum only. Will observe for now, awaiting cardiology evaluation. Patient will be followed in the office next week. Problem Patient Problems: Patient Problems Urethral bleeding (Acute) N36.8 CHF (congestive heart failure) (Chronic) I50.9
--- NOTE | 2024-05-08 08:52 | NOTE.SOAP ---
Soap Note Note for Day of Date of Exam: 05/07/24 Subjective Data Subjective Data: No overnight events. Seen with nurse. Pt still wants to talk with surgeon. Ambulating to restroom with assistance. UOP fair with continued orange coloring. Objective Data Objective Data: Elderly male in no acute distress. Hearing intact conversation. Head NCAT. Heart regular rate and rhythm. Belly soft, NT, ND, with bowel sounds present. Large left inguinal hernia present. Assessment Assessment: 1. Acute on chronic systolic heart failure-BNP elevated again today. Legs appear little more swollen. Continue Bumex. Hold Entresto for now. 2. Large left inguinal hernia-stable. Surgery consult on Wednesday. 3. PAF-chronic. Hold Xarelto for now due to gross hematuria. 4. Gross hematuria-possible urethral injury. Urine still dark orange color but no blood appreciated. Repeating U/A today
--- NOTE | 2024-05-08 09:19 | PCM.PROG ---
Progress Note Progress Note for Day of Date of Exam: 05/08/24 Subjective Subjective: Patient seen at bedside, no acute events overnight. He is currently admitted for gross hematuria, UTI and CHF exacerbation. He also has a left inguinal hernia. Dr Mitchell saw the patient and did not think patient needed urgent surgical intervention. Cardio consult is pending for cardiac clearance. Echo pending. Labs/imaging reviewed: -WBC 6.0 Hgb 12.5 K 3.7 BUN/Cr 19/1.2 -Urine Cx pending Plan: Follow surgery recommendations. Awaiting cardiac clearance and echo results. Patient's prev EF is around 19-20%. Continue bumex, monitor UOP and I&Os. Follow urine culture, continue Rocephin. Continue to hold Xarelto. Entresto on hold due to low BP, monitor BP today. Replace electrolytes prn. Monitor AM labs/imaging. Past Medical Family Social History Allergies: Allergies No Known Allergies Allergy (Verified 05/03/24 12:41) Review of Systems ROS: No change since H&P Vital Signs and I&O's Vital Signs: Vital Signs Temperature 98.5 F Pulse Rate [Left Brachial] 79 Respiratory Rate 18 Blood Pressure [Left Arm] 110/61 O2 Sat by Pulse Oximetry 94 Intake and Output: Intake & Output 05/05/24 05/06/24 05/07/24 05/08/24 23:59 23:59 23:59 23:59 Intake Total 1820 / 1820 1162 / 1162 1170 / 1170 250 / 250 Output Total 201 / 201 1101 / 1101 1053 / 1053 100 / 100 Balance 1619 / 1619 61 / 61 117 / 117 150 / 150 Physical Exam Oriented: Normal Eyes: Normal Throat: Normal Respiratory: Generalized and Diminished Cardiovascular: Normal and Edema Auscultation: Bowel Sounds: Normal Palpation: Normal Tenderness: Normal Skin: Normal Musculoskeletal: Normal Psychiatric: Normal Mood Description: Calm Affect: Normal Speech Pattern: Clear and Appropriate Laboratory and Diagnostics 05/08/24 05:15 05/08/24 05:15 Labs: 05/07/24 09:59 Urine,Clean Catch Urine Culture - Preliminary Laboratory WBC 6.0 X10^3/uL (3.6-10.0) 05/08/24 05:15 RBC 3.96 X10^6/uL (4.7-6.0) L 05/08/24 05:15 Hgb 12.5 g/dL (13.5-18.0) L 05/08/24 05:15 Hct 37.9 % (42.0-54.0) L 05/08/24 05:15 MCV 95.6 fL (80.0-100.0) 05/08/24 05:15 MCH 31.6 pg (27.0-34.0) 05/08/24 05:15 MCHC 33.0 g/dL (33.0-35.0) 05/08/24 05:15 RDW 21.2 % (11.6-16.5) H 05/08/24 05:15 Plt Count 180 X10^3/uL (150.0-450.0) 05/08/24 05:15 Plt Count Comment Adequate (ADEQUATE) 05/08/24 05:15 MPV 8.8 fL (7.4-11.0) 05/08/24 05:15 Neut % (Auto) 63.3 % (42.0-75.0) 05/08/24 05:15 Lymph % (Auto) 16.8 % (21.0-51.0) L 05/08/24 05:15 [place] % (Auto) 17.1 % (0.0-13.0) H 05/08/24 05:15 Eos % (Auto) 1.8 % (0.9-2.9) 05/08/24 05:15 Baso % (Auto) 1.0 % (0.2-1.0) 05/08/24 05:15 Neut # (Auto) 3.8 x10^3/uL (2.2-4.8) 05/08/24 05:15 Lymph # (Auto) 1.0 X10^3/uL (1.3-2.9) L 05/08/24 05:15 [place] # (Auto) 1.0 x10^3/uL (0.3-0.8) H 05/08/24 05:15 Eos # (Auto) 0.1 x10^3/uL (0.0-0.2) 05/08/24 05:15 Baso # (Auto) 0.1 X10^3/uL (0.0-0.1) 05/08/24 05:15 Absolute Nucleated RBC 0.1 /100WBC 05/08/24 05:15 Total Counted 100 05/04/24 04:10 Neutrophils % (Manual) 62 % (39-76) 05/04/24 04:10 Lymphocytes % (Manual) 20 % (13-43) 05/04/24 04:10 Monocytes % (Manual) 16 % (4-9) H 05/04/24 04:10 Eosinophils % (Manual) 2 % (0-6) 05/04/24 04:10 Plt Morphology Comment Normal (NORMAL) 05/08/24 05:15 RBC Morphology Abnormal (NORMAL) 05/08/24 05:15 Anisocytosis 1+ A 05/08/24 05:15 Target Cells Present 05/06/24 05:07 Tear Drop Cells 1+ A 05/05/24 04:09 Magda Cells Slight A 05/05/24 04:09 PT 18.0 SECONDS (11.8-14.3) 05/05/24 04:09 INR Target Range - 05/05/24 04:09 INR 1.53 (0.8-1.3) H 05/05/24 04:09 APTT 37.2 SECONDS (22.9-36.5) H 05/03/24 13:10 PTT Comment - 05/03/24 13:10 Sodium 137 mmol/L (136-145) 05/08/24 05:15 Corrected Sodium TNP 05/08/24 05:15 Potassium 3.7 mmol/L (3.5-5.1) 05/08/24 05:15 Chloride 97 mmol/L (98-107) L 05/08/24 05:15 Carbon Dioxide 32.7 mmol/L (21-32) H 05/08/24 05:15 BUN 19 mg/dL (7-18) H 05/08/24 05:15 Creatinine 1.20 mg/dL (0.70-1.30) 05/08/24 05:15 Est GFR (MDRD) Af Amer > 60 (>60) 05/08/24 05:15 Est GFR (MDRD) Non-Af > 60 (>60) 05/08/24 05:15 Glucose 71 mg/dL (65-99) 05/08/24 05:15 Calcium 8.4 mg/dL (8.5-10.1) L 05/08/24 05:15 Corrected Calcium 9.0 mg/dL (8.5-10.1) 05/08/24 05:15 Magnesium 2.3 mg/dL (2.0-2.9) 05/06/24 05:07 Total Bilirubin 3.80 mg/dL (0.2-1.0) H 05/08/24 05:15 AST 18 Units/L (15-37) 05/08/24 05:15 ALT 14 Units/L (12-78) 05/08/24 05:15 Alkaline Phosphatase 105 Units/L (46-116) 05/08/24 05:15 B-Natriuretic Peptide 3290 pg/mL (0-79) H 05/08/24 05:15 Total Protein 7.0 g/dL (6.4-8.2) 05/08/24 05:15 Albumin 3.2 g/dL (3.4-5.0) L 05/08/24 05:15 Globulin 3.8 g/dL (2.5-4.5) 05/08/24 05:15 Albumin/Globulin Ratio 0.8 Ratio (1.1-2.1) L 05/08/24 05:15 Specimen Type Clean catch urine 05/07/24 09:59 Urine Color Yellow (YELLOW) 05/07/24 09:59 Urine Appearance Slightly hazy (CLEAR) 05/07/24 09:59 Urine pH 6.0 (5.0 - 8.0) 05/07/24 09:59 Ur Specific [place] 1.020 (1.000-1.030) 05/07/24 09:59 Urine Protein 1+ (NEGATIVE) 05/07/24 09:59 Urine Glucose (UA) 4+ (NEGATIVE) 05/07/24 09:59 Urine Ketones Negative (NEGATIVE) 05/07/24 09:59 Urine Blood 2+ (NEGATIVE) 05/07/24 09:59 Urine Nitrite Negative (NEGATIVE) 05/07/24 09:59 Urine Bilirubin Negative (NEGATIVE) 05/07/24 09:59 Urine Urobilinogen 1+ (NORMAL) 05/07/24 09:59 Ur Leukocyte Esterase 2+ (NEGATIVE) 05/07/24 09:59 Urine RBC 0-2 /HPF (0-3) 05/07/24 09:59 Urine WBC 3-5 /HPF (0-5) 05/07/24 09:59 Ur Squamous Epith Cells Few /HPF (NEGATIVE) 05/07/24 09:59 Amorphous Sediment 2+ /HPF (NEGATIVE) 05/07/24 09:59 Urine Bacteria 2+ /HPF (NEGATIVE) 05/07/24 09:59 Urine Mucus Rare /HPF (NEGATIVE) 05/07/24 09:59 Ur Culture Indicated? Yes/culture set up 05/07/24 09:59 Stl Occult Blood (IFOB) Negative (NEGATIVE) 05/07/24 18:10 Plan (1) Hypotension: Status: Acute Qualifiers: Hypotension type: unspecified hypotension type Qualified Code(s): I95.9 - Hypotension, unspecified (2) Hematuria: Status: Acute Qualifiers: Hematuria type: unspecified type Qualified Code(s): R31.9 - Hematuria, unspecified (3) CHF (congestive heart failure): Status: Chronic Qualifiers: Heart failure chronicity: unspecified Heart failure type: unspecified Qualified Code(s): I50.9 - Heart failure, unspecified (4) Current use of watermelon inspector anticoagulation: Status: Chronic (5) Left inguinal hernia: Status: Chronic (6) UTI (urinary tract infection): Status: Acute Qualifiers: Hematuria presence: with hematuria Urinary tract infection type: acute cystitis Qualified Code(s): N30.01 - Acute cystitis with hematuria
[2024-05-08] MEDS: K-DUR TAB 20 MEQ PO SCH (09:37)
[2024-05-09 04:16] VITALS: TEMP 98
[2024-05-09 05:30] LABS: BASOPHILS % (AUTO) 0.8 % (0.2-1.0); EOSINOPHILS # (AUTO) 0.1 x10^3/uL (0.0-0.2); EOSINOPHILS % (AUTO) 1.6 % (0.9-2.9); HEMATOCRIT 38.6 % (42.0-54.0); HEMOGLOBIN 13.1 g/dL (13.5-18.0); LYMPHOCYTES # (AUTO) 0.7 X10^3/uL (1.3-2.9); LYMPHOCYTES % (AUTO) 12.4 % (21.0-51.0); MEAN CORPUSCULAR HEMOGLOBIN 32.2 pg (27.0-34.0); MEAN CORPUSCULAR HGB CONC 33.8 g/dL (33.0-35.0); MEAN CORPUSCULAR VOLUME 95.2 fL (80.0-100.0); MEAN PLATELET VOLUME 8.9 fL (7.4-11.0); MONOCYTES # (AUTO) 1.1 x10^3/uL (0.3-0.8); MONOCYTES % (AUTO) 17.8 % (0.0-13.0); NEUTROPHILS % (AUTO) 67.4 % (42.0-75.0); PLATELET COUNT 154 X10^3/uL (150.0-450.0); RED BLOOD COUNT 4.06 X10^6/uL (4.7-6.0); RED CELL DISTRIBUTION WIDTH 21.8 % (11.6-16.5); WHITE BLOOD COUNT 5.9 X10^3/uL (3.6-10.0)
[2024-05-09 05:48] LABS: INR 1.55 (0.8-1.3)
[2024-05-09 05:50] LABS: ALANINE AMINOTRANSFERASE 13 Units/L (12-78); ALBUMIN 2.9 g/dL (3.4-5.0); ALKALINE PHOSPHATASE 98 Units/L (46-116); ASPARTATE AMINO TRANSFERASE 18 Units/L (15-37); BLOOD UREA NITROGEN 21 mg/dL (7-18); CALCIUM 8.5 mg/dL (8.5-10.1); CARBON DIOXIDE 32.8 mmol/L (21-32); CHLORIDE 98 mmol/L (98-107); COR CA(FOR HYPOALB) 9.4 mg/dL (8.5-10.1); CREATININE 1.27 mg/dL (0.70-1.30); GLUCOSE 104 mg/dL (65-99); MAGNESIUM 2.3 mg/dL (2.0-2.9); POTASSIUM 4.2 mmol/L (3.5-5.1); SODIUM 135 mmol/L (136-145); TOTAL PROTEIN 6.8 g/dL (6.4-8.2); eGFR NON BLACK RACES 59 (>60)
[2024-05-09 06:26] LABS: ANISOCYTOSIS 1+; PLATELET MORPHOLOGY COMMENT NORMAL (NORMAL)
--- NOTE | 2024-05-09 07:53 | RAD ---
EXAMINATION:CHEST, 1 VIEWHISTORY:SOB, COPD; CHF, HTN, AFIB SX: PACEMAKER/DEFIBRILLATOR .COMPARISON STUDY:Chest x-ray 05/04/2024TECHNIQUE:Single frontal view of the chestFINDINGS:Lungs are expanded. Opacity obscures the left pulmonary base/hemidiaphragm. Equivocal patchy alveolar infiltrate medial right pulmonary base. Moderate cardiac silhouette enlargement. Normal pulmonary vascular pattern. Cardiac pacer device left chest. Bones appear intact.IMPRESSION:Dense opacity obscuring the left lower lung/hemidiaphragm of the chest. Equivocal patchy infiltrate right pulmonary base. Consider follow-up CT of the thorax.Cardiac silhouette enlargement.THIS IS AN ELECTRONICALLY VERIFIED FINAL [id number]/2024 7:49 AM - Electronically signed by Alexia Campbell MD
[2024-05-09] MEDS ORDERED: LEXAPRO ONE (08:24)
[2024-05-09] MEDS ORDERED: DUONEB 0.5 MG/3 MG (3 mL) NEB SCH (09:00)
[2024-05-09 09:16] VITALS: BP 96/68; PULSE 81; RESP 20; O2SAT 99
== END 2024-05-09 11:55 | DRG 291 ==
LOC: ER 12:11 → MED/SURG 12:11 → OBSVTOIN 17:22 → INTOOBSV 17:22 → MED/SURG 17:52
PROVIDERS: ADMIT Family Medicine; ATTEND Family Medicine
DX: Z03.818 Encounter for observation for suspected exposure to other biological agents ruled out; R06.02 Shortness of breath; R26.89 Other abnormalities of gait and mobility; Z16.19 Resistance to other specified beta lactam antibiotics; Z66 Do not resuscitate; I50.23 Acute on chronic systolic (congestive) heart failure; I11.0 Hypertensive heart disease with heart failure; K40.90 Unilateral inguinal hernia, without obstruction or gangrene, not specified as recurrent; I95.89 Other hypotension; N30.01 Acute cystitis with hematuria; Z95.0 Presence of cardiac pacemaker; B96.4 Proteus (mirabilis) (morganii) as the cause of diseases classified elsewhere; Z16.11 Resistance to penicillins

== ENCOUNTER 2024-06-29 21:32 | Observation (INO) ==
[2024-06-29 22:55] LABS: BASOPHILS # (AUTO) 0.1 X10^3/uL (0.0-0.1); BASOPHILS % (AUTO) 0.9 % (0.2-1.0); EOSINOPHILS # (AUTO) 0.1 x10^3/uL (0.0-0.2); EOSINOPHILS % (AUTO) 1.5 % (0.9-2.9); HEMATOCRIT 40.8 % (42.0-54.0); HEMOGLOBIN 13.6 g/dL (13.5-18.0); LYMPHOCYTES # (AUTO) 0.7 X10^3/uL (1.3-2.9); LYMPHOCYTES % (AUTO) 9.6 % (21.0-51.0); MEAN CORPUSCULAR HEMOGLOBIN 32.1 pg (27.0-34.0); MEAN CORPUSCULAR HGB CONC 33.4 g/dL (33.0-35.0); MEAN PLATELET VOLUME 9.5 fL (7.4-11.0); MONOCYTES % (AUTO) 14.2 % (0.0-13.0); NEUTROPHILS # (AUTO) 5.2 x10^3/uL (2.2-4.8); NEUTROPHILS % (AUTO) 73.8 % (42.0-75.0); PLATELET COUNT 163 X10^3/uL (150.0-450.0); RED BLOOD COUNT 4.25 X10^6/uL (4.7-6.0); RED CELL DISTRIBUTION WIDTH 19.3 % (11.6-16.5)
[2024-06-29 23:02] LABS: BILIRUBIN,URINE NEGATIVE (NEGATIVE); BLOOD/HEMOGLOBIN,URINE 5+ (NEGATIVE); GLUCOSE, URINE 1+ (NEGATIVE); KETONES,URINE NEGATIVE (NEGATIVE); LEUKOCYTE ESTERASE ,URINE 2+ (NEGATIVE); NITRITES,URINE NEGATIVE (NEGATIVE); PROTEIN,URINE 3+ (NEGATIVE); UROBILINOGEN,URINE 1+ (NORMAL)
[2024-06-29 23:10] LABS: ALANINE AMINOTRANSFERASE 21 Units/L (12-78); ALBUMIN 2.8 g/dL (3.4-5.0); ALKALINE PHOSPHATASE 110 Units/L (46-116); ASPARTATE AMINO TRANSFERASE 26 Units/L (15-37); BLOOD UREA NITROGEN 42 mg/dL (7-18); CALCIUM 8.6 mg/dL (8.5-10.1); CARBON DIOXIDE 37.4 mmol/L (21-32); CHLORIDE 92 mmol/L (98-107); COR CA(FOR HYPOALB) 9.6 mg/dL (8.5-10.1); CREATININE 1.74 mg/dL (0.70-1.30); GLUCOSE 94 mg/dL (65-99); MAGNESIUM 2.5 mg/dL (2.0-2.9); POTASSIUM 3.4 mmol/L (3.5-5.1); SODIUM 133 mmol/L (136-145); TOTAL PROTEIN 6.8 g/dL (6.4-8.2); eGFR NON BLACK RACES 41 (>60)
[2024-06-29 23:13] LABS: APPEARANCE,URINE CLOUDY (CLEAR); BACTERIA,URINE 1+ /HPF (NEGATIVE); COLOR,URINE DARK YELLOW (YELLOW); SQUAMOUS EPITHELIAL CELL,UR FEW /HPF (NEGATIVE)
--- NOTE | 2024-06-29 23:48 | RAD ---
EXAM:CHEST, 1 VIEWHISTORY:PT C/O SOB ; HTN, DM, CIRRHOSIS, CHF, AFIB, BPH, CARDIOMEGALY, INGUINAL HERNIA SX: PPMCOMPARISON:May 09, 2024TECHNIQUE:Chest radiographic imaging, AP portable projection, 1 imageFINDINGS:Moderate cardiomegaly.Pacemaker in place.No focal airspace disease.No pleural effusion.No pneumothorax.No acute osseous abnormality.IMPRESSION:No imaging findings of acute cardiopulmonary disease or significant changes.THIS IS AN ELECTRONICALLY VERIFIED FINAL REPORT06/29/2024 11:45 PM - Electronically signed by Ricci Mayo MD
[2024-06-30] MEDS: BUMEX INJ 1 MG VIAL IVP ONE ×2 (00:45→01:02)
[2024-06-30] MEDS: ROCEPHIN VIAL 1 GRAM 1 G in NS 100 ML IV 100 ML IV ONE (00:45)
--- NOTE | 2024-06-30 01:41 | DR.SCROTAL ---
HPI Time Seen Time Seen by Provider: 06/29/24 22:33 PCP Primary Care Physician: CHRISTI HPI Comment HPI Comment: Patient was sent from assisted due to scrotal swelling which patient and his niece state is chronic, however he had scratched it and it was bleeding. Patient does have a Enriquez cath in place. At the time he arrived to scrotum is no longer bleeding. Patient has hx of cirrhosis of the liver, coronary artery disease, CHF, CKD, cardiomyopathy (most recent EF of 15%), HTN, HLD, Type 2 DM and is on home O2. Patient and family are considering hospice but at this time he is DNR. Patient states he is having some SOB but only slightly worse than his baseline. Complaint Chief Complaint:: PT IN ED VIA WHEELCHAIR FROM [facility] WITH C/O SCROTAL SWELLING AND SCROTAL BLEEDING. PT HAS A ENRIQUEZ CATH PATENT TO URINARY DRAINAGE BAG. PER HALFWAY STAFF PT SCRATCHED HIS SCROTUM WITH HIS NAILS. SCROTUM CURRENTLY NOT BLEEDING. Source History Provided: Patient and [facility] Mode of Arrival Mode of Arrival: Wheelchair Timing Onset of Chief Complaint: 06/29/24 PMH PMH Past Medical History: Yes Past Medical History: Cirrhosis, CHF, Depression, Diabetes, Dyslipidemia and Hypertension Past Medical History Comment: A-FIB BPH CARDIOMEGALY INGUINAL HERNIA Past Surgical History: Yes Surgical History: Unknown Past Surgical History Comment: PPM Family History History of Family Medical Conditions: Yes Family Medical History: Diabetes Mellitus Social History Does patient currently use any type of tobacco product: No Have you used tobacco products in the last 12 months: No Type of Tobacco Use: None Does any household member use tobacco: No Alcohol Use: None Do you use any recreational Drugs:: No Lives With: Other Lives Where: [facility] Travel Risk Coronavirus risk:travel/contact w/high risk person: No Has patient experienced Coronavirus symptoms: No Infectious screening In the last 2 months have you had wt loss of >10#?: NO Have you had fever, night sweats or hemotysis?: No Have you traveled outside the country in the last 6 months?: No Isolation: Standard ROS Review of Systems Constitutional: No Symptoms Reported Eyes: No Symptoms Reported ENTM: No Symptoms Reported Respiratoy: See HPI and Short of Breath; negative Productive Cough, Non- Productive Cough, Wheezing or Hemoptysis Cardiovascular: See HPI and Edema (States it is better than his baseline. ); negative Chest Pain, Palpitations or Syncope Gastrointestinal/Abdominal: No Symptoms Reported Genitourinary: No Symptoms Reported Neurological: No Symptoms Reported Musculoskeletal: No Symptoms Reported Integumentary: No Symptoms Reported Hematologic/Lymphatic: No Symptoms Reported Endocrine: No Symptoms Reported Psychiatric: No Symptoms Reported All Other Systems: Reviewed and Negative PE Vital Signs Vitals: Vital Signs Temperature 97.7 F Pulse Rate 76 Pulse Rate 75 Pulse Rate 74 Pulse Rate 73 Pulse Rate 75 Pulse Rate 77 Pulse Rate 75 Pulse Rate 77 Pulse Rate 77 Pulse Rate 75 Pulse Rate 74 Pulse Rate 74 Pulse Rate 77 Pulse Rate 77 Pulse Rate 78 Pulse Rate 79 Pulse Rate 80 Pulse Rate 79 Pulse Rate 79 Pulse Rate 98 Respiratory Rate 13 Respiratory Rate 15 Respiratory Rate 23 Respiratory Rate 22 Respiratory Rate 16 Respiratory Rate 13 Respiratory Rate 17 Respiratory Rate 17 Respiratory Rate 13 Respiratory Rate 13 Respiratory Rate 13 Respiratory Rate 15 Respiratory Rate 14 Respiratory Rate 16 Respiratory Rate 16 Respiratory Rate 15 Respiratory Rate 18 Respiratory Rate 15 Respiratory Rate 13 Respiratory Rate 22 Blood Pressure 87/58 Blood Pressure 87/58 Blood Pressure 103/75 Blood Pressure 99/63 Blood Pressure 91/65 Blood Pressure 103/71 Blood Pressure 131/69 Blood Pressure 124/77 Blood Pressure 100/72 Blood Pressure 107/69 O2 Sat by Pulse Oximetry 94 O2 Sat by Pulse Oximetry 96 O2 Sat by Pulse Oximetry 97 O2 Sat by Pulse Oximetry 91 O2 Sat by Pulse Oximetry 97 O2 Sat by Pulse Oximetry 98 O2 Sat by Pulse Oximetry 100 O2 Sat by Pulse Oximetry 99 O2 Sat by Pulse Oximetry 88 O2 Sat by Pulse Oximetry 99 O2 Sat by Pulse Oximetry 99 O2 Sat by Pulse Oximetry 100 O2 Sat by Pulse Oximetry 92 General Limitations: No Limitations General Appearance: Alert and In No Apparent Distress Head Head Exam: Normal Inspection Eyes Eye exam: Normal Appearance ENT ENT Exam: Normal Exam Neck Neck Exam: Normal Inspection Chest Chest Inspection: Normal Inspection Respiratory Respiratory Exam: Normal Lung Sounds Bilat; negative Respiratory Distress Respiratory Exam: Bilateral: Clear to Auscultation Cardiovascular Cardiovascular Exam: Regular Rate, Normal Rhythm and Other (murmur) Abdominal Exam Abdominal Exam: Normal Bowel Sounds, Soft and Ascites; negative Tenderness, Guarding, Rebound or Rigidity Rectal Rectal Exam: Deferred Genitourinary Exam: Male: Deferred Extremities Extremities Exam: Edema Back Back Exam: Normal Inspection Neurological Neurological Exam: Alert and Oriented X3 Psychiatric Psychiatric Exam: Normal Affect and Normal Mood Skin Skin Exam: Warm, Dry, Intact and Normal Color Other Exam Other Exam: Scrotal edema with dried blood but no active bleeding. COURSE Consultation Called: :59 Consultation Comments: Discussed case and results with Dr. Mosley and he is agreeable to admission. ROR Labs Reviewed 06/29/24 22:45 06/29/24 22:45 Laboratory: WBC 7.0 X10^3/uL (3.6-10.0) 06/29/24 22:45 RBC 4.25 X10^6/uL (4.7-6.0) L 06/29/24 22:45 Hgb 13.6 g/dL (13.5-18.0) 06/29/24 22:45 Hct 40.8 % (42.0-54.0) L 06/29/24 22:45 MCV 96.0 fL (80.0-100.0) 06/29/24 22:45 MCH 32.1 pg (27.0-34.0) 06/29/24 22:45 MCHC 33.4 g/dL (33.0-35.0) 06/29/24 22:45 RDW 19.3 % (11.6-16.5) H 06/29/24 22:45 Plt Count 163 X10^3/uL (150.0-450.0) 06/29/24 22:45 MPV 9.5 fL (7.4-11.0) 06/29/24 22:45 Neut % (Auto) 73.8 % (42.0-75.0) 06/29/24 22:45 Lymph % (Auto) 9.6 % (21.0-51.0) L 06/29/24 22:45 [place] % (Auto) 14.2 % (0.0-13.0) H 06/29/24 22:45 Eos % (Auto) 1.5 % (0.9-2.9) 06/29/24 22:45 Baso % (Auto) 0.9 % (0.2-1.0) 06/29/24 22:45 Neut # (Auto) 5.2 x10^3/uL (2.2-4.8) H 06/29/24 22:45 Lymph # (Auto) 0.7 X10^3/uL (1.3-2.9) L 06/29/24 22:45 [place] # (Auto) 1.0 x10^3/uL (0.3-0.8) H 06/29/24 22:45 Eos # (Auto) 0.1 x10^3/uL (0.0-0.2) 06/29/24 22:45 Baso # (Auto) 0.1 X10^3/uL (0.0-0.1) 06/29/24 22:45 Absolute Nucleated RBC 0.2 /100WBC 06/29/24 22:45 Sodium 133 mmol/L (136-145) L 06/29/24 22:45 Corrected Sodium TNP 06/29/24 22:45 Potassium 3.4 mmol/L (3.5-5.1) L 06/29/24 22:45 Chloride 92 mmol/L (98-107) L 06/29/24 22:45 Carbon Dioxide 37.4 mmol/L (21-32) H 06/29/24 22:45 BUN 42 mg/dL (7-18) H 06/29/24 22:45 Creatinine 1.74 mg/dL (0.70-1.30) H 06/29/24 22:45 Est GFR (MDRD) Af Amer 50 (>60) L 06/29/24 22:45 Est GFR (MDRD) Non-Af 41 (>60) L 06/29/24 22:45 Glucose 94 mg/dL (65-99) 06/29/24 22:45 Calcium 8.6 mg/dL (8.5-10.1) 06/29/24 22:45 Corrected Calcium 9.6 mg/dL (8.5-10.1) 06/29/24 22:45 Magnesium 2.5 mg/dL (2.0-2.9) 06/29/24 22:45 Total Bilirubin 3.40 mg/dL (0.2-1.0) H 06/29/24 22:45 AST 26 Units/L (15-37) 06/29/24 22:45 ALT 21 Units/L (12-78) 06/29/24 22:45 Alkaline Phosphatase 110 Units/L (46-116) 06/29/24 22:45 B-Natriuretic Peptide 3170 pg/mL (0-79) H 06/29/24 22:45 Total Protein 6.8 g/dL (6.4-8.2) 06/29/24 22:45 Albumin 2.8 g/dL (3.4-5.0) L 06/29/24 22:45 Globulin 4.0 g/dL (2.5-4.5) 06/29/24 22:45 Albumin/Globulin Ratio 0.7 Ratio (1.1-2.1) L 06/29/24 22:45 Specimen Type Clean catch urine 06/29/24 22:49 Urine Color Dark yellow (YELLOW) 06/29/24 22:49 Urine Appearance Cloudy (CLEAR) 06/29/24 22:49 Urine pH 5.0 (5.0 - 8.0) 06/29/24 22:49 Ur Specific [place] 1.025 (1.000-1.030) 06/29/24 22:49 Urine Protein 3+ (NEGATIVE) 06/29/24 22:49 Urine Glucose (UA) 1+ (NEGATIVE) 06/29/24 22:49 Urine Ketones Negative (NEGATIVE) 06/29/24 22:49 Urine Blood 5+ (NEGATIVE) 06/29/24 22:49 Urine Nitrite Negative (NEGATIVE) 06/29/24 22:49 Urine Bilirubin Negative (NEGATIVE) 06/29/24 22:49 Urine Urobilinogen 1+ (NORMAL) 06/29/24 22:49 Ur Leukocyte Esterase 2+ (NEGATIVE) 06/29/24 22:49 Urine RBC 5-10 /HPF (0-3) A 06/29/24 22:49 Urine WBC Tntc /HPF (0-5) A 06/29/24 22:49 Ur Squamous Epith Cells Few /HPF (NEGATIVE) 06/29/24 22:49 Amorphous Sediment 1+ /HPF (NEGATIVE) 06/29/24 22:49 Urine Bacteria 1+ /HPF (NEGATIVE) 06/29/24 22:49 Urine Mucus Moderate /HPF (NEGATIVE) 06/29/24 22:49 Ur Culture Indicated? No/not indicated 06/29/24 22:49 Opioid Opioid Risk Tool Age (Vega box if 16-45): No History of Preadolescent Sexual Abuse: No Total: 0 Total Score Risk Category: Low Risk Copyright: Robert WONG predicting aberrant behaviors Discharge Plan Diagnosis Discharge Problem: Acute exacerbation of CHF (congestive heart failure), Acute on chronic kidney failure Cirrhosis of liver Qualifiers: Ascites presence: with ascites Discharge Plan Patient Disposition: ADMITTED INPATIENT Condition: Stable Prescriptions: No Action sacubitril-valsartan [Entresto] 49-51 mg tablet 1 tab PO BID carvedilol 3.125 mg tablet 3.125 mg PO BID escitalopram oxalate 10 mg tablet 10 mg PO QDAY Xarelto 20 mg tablet 20 mg PO QDAY dapagliflozin propanediol [Farxiga] 10 mg tablet 10 mg PO QDAY Aquaphor Original 41 % ointment 1 applic topical Q4H PRN Health Concerns: Post Hospitalization: new medications and changes needed to prevent readmission or further decline. Pt educated and given instructions on all concerns. Plan of Treatment: Continue with present treatment and follow up plan. Pt is to keep follow up appointment as instructed and take medications as ordered. Orders to Discharge Patient Discharge Orders: Transfer (Routine); Ordered 06/30/24 Ordered By: Vijay Troy Follow ups/Referrals Follow ups/Referrals: Kemal Owusu [Primary Care Provider] - 3 days Instructions Stand Alone Forms: Find Help Web Site, Post Hospital Follow Up Care
[2024-06-30 04:25] VITALS: BMI 33.5
[2024-06-30 05:00] VITALS: TEMP 97.6
[2024-06-30 05:00] LABS: BASOPHILS % (AUTO) 0.7 % (0.2-1.0); EOSINOPHILS # (AUTO) 0.1 x10^3/uL (0.0-0.2); EOSINOPHILS % (AUTO) 1.8 % (0.9-2.9); HEMATOCRIT 40.8 % (42.0-54.0); HEMOGLOBIN 13.6 g/dL (13.5-18.0); LYMPHOCYTES # (AUTO) 0.9 X10^3/uL (1.3-2.9); LYMPHOCYTES % (AUTO) 14.3 % (21.0-51.0); MEAN CORPUSCULAR HEMOGLOBIN 31.9 pg (27.0-34.0); MEAN CORPUSCULAR HGB CONC 33.3 g/dL (33.0-35.0); MEAN CORPUSCULAR VOLUME 95.9 fL (80.0-100.0); MEAN PLATELET VOLUME 9.9 fL (7.4-11.0); MONOCYTES # (AUTO) 0.9 x10^3/uL (0.3-0.8); MONOCYTES % (AUTO) 13.4 % (0.0-13.0); NEUTROPHILS # (AUTO) 4.6 x10^3/uL (2.2-4.8); NEUTROPHILS % (AUTO) 69.8 % (42.0-75.0); PLATELET COUNT 151 X10^3/uL (150.0-450.0); RED BLOOD COUNT 4.25 X10^6/uL (4.7-6.0); RED CELL DISTRIBUTION WIDTH 19.2 % (11.6-16.5); WHITE BLOOD COUNT 6.5 X10^3/uL (3.6-10.0)
[2024-06-30 05:11] LABS: AMMONIA 30 umol/L (11-32)
[2024-06-30 05:19] LABS: ALANINE AMINOTRANSFERASE 21 Units/L (12-78); ALBUMIN 2.7 g/dL (3.4-5.0); ALKALINE PHOSPHATASE 101 Units/L (46-116); ASPARTATE AMINO TRANSFERASE 28 Units/L (15-37); BLOOD UREA NITROGEN 41 mg/dL (7-18); CALCIUM 8.8 mg/dL (8.5-10.1); CARBON DIOXIDE 33.3 mmol/L (21-32); CHLORIDE 93 mmol/L (98-107); CHOL/HDL RATIO 3.9 (0.0-5.0); CHOLESTEROL 85 mg/dL (0-200); COR CA(FOR HYPOALB) 9.8 mg/dL (8.5-10.1); CREATININE 1.47 mg/dL (0.70-1.30); GLUCOSE 77 mg/dL (65-99); HDL CHOLESTEROL 22 mg/dL (40-60); POTASSIUM 3.5 mmol/L (3.5-5.1); SODIUM 134 mmol/L (136-145); TOTAL PROTEIN 6.6 g/dL (6.4-8.2); TRIGLYCERIDES 34 mg/dL (0-150); eGFR NON BLACK RACES 50 (>60)
[2024-06-30] MEDS ORDERED: CONSULT PHARMACY - POTASSIUM & MAGNESIUM XX SCH (06:00)
[2024-06-30 06:20] VITALS: RESP 17
--- NOTE | 2024-06-30 07:34 | EKG ---
Test Reason : rhythm change Blood Pressure : */* mmHG Vent. Rate : 80 BPM Atrial Rate : 78 BPM P-R Int : * ms QRS Dur : 164 ms QT Int : 504 ms P-R-T Axes : 53 213 24 degrees QTc Int : 581 ms sinus with p sensing/occ a paced with pvcs Abnormal ECG No previous ECGs available Confirmed by Peter Bee MD ([id number]) on 06/30/2024 10:10:05 AM Referred By: Confirmed By: Peter Bee MD
[2024-06-30] MEDS: K-DUR TAB 20 MEQ PO SCH (09:29)
[2024-06-30] MEDS: PHARMACY CONSULT LTC MEDICATIONS XX SCH (09:29)
[2024-06-30 10:07] VITALS: BP 103/59; PULSE 86; O2SAT 95
--- NOTE | 2024-07-04 12:06 | DR.SSS ---
SHORT STAY SUMMARY Admission Date Date of Admission: 06/30/24 Discharge Date Discharge Date: 06/30/24 Admission Diagnoses Admission Diagnoses: Scrotal bleeding Discharge Diagnoses Discharge Diagnoses: Scrotal bleeding Chief Complaint Chief Complaint: Sent from [facility] due to scrotal bleeding History of Present Illness History of Present Illness: Patient is a 73-year-old male with a history of CHF, cirrhosis, diabetes, hypertension presenting from [facility] to the ER due to a scratch on his scrotum that resulted in bleeding. In the ER bleeding seem to have resolved on its own. Patient was admitted for observation. Labs: WBC 6.5, hemoglobin 13.6, platelets 151, sodium 134, potassium 3.5, creatinine 1.47, glucose 77, UA negative, chest x-ray negative. Patient was observed in on exam no bleeding noted. No other concerns as patient appears to be at baseline. Patient was discharged in stable condition back to [facility]. Past Medical History Past Medical History: Cirrhosis, CHF, Depression, Diabetes, Dyslipidemia and Hypertension Past Surgical History Surgical History: Unknown Allergies Allergies Allergy/AdvReac Type Severity Reaction Status Date / Time No Known Allergies Allergy Verified 06/29/24 21:46 Medications Home Medications: No Known Allergies Allergy (Verified 06/29/24 21:46) Family History Family Medical History: Diabetes Mellitus Social History Does patient currently use any type of tobacco product: No Have you used tobacco products in the last 12 months: No Type of Tobacco Use: None Does any household member use tobacco: No Alcohol Use: None Drug Use: None Review of Systems Constitutional: No Symptoms Reported Eyes: No Symptoms Reported ENT: No Symptoms Reported Respiratory: No Symptoms Reported Cardiovascular: No Symptoms Reported Gastrointestinal: No Symptoms Reported Genitourinary: Other (scrotal bleeding) Musculoskeletal: No Symptoms Reported Skin: No Symptoms Reported Neurological: No Symptoms Reported Physical Exam Vital Signs: Last Vital Signs Temp 97.6 F 06/30/24 04:00 Pulse 89 06/30/24 06:00 Resp 17 06/30/24 06:00 BP 85/58 06/30/24 06:00 Pulse Ox 98 06/30/24 06:00 O2 Del Method Nasal Cannula 06/30/24 07:45 O2 Flow Rate 2 06/30/24 07:45 FiO2 28 06/30/24 07:45 Oriented: Normal Eyes: Normal Respiratory: Diminished Throughout Cardiovascular: Normal : Normal Auscultation: Bowel Sounds: Normal Palpation: Normal Tenderness: Normal Skin: Normal Speech Pattern: Clear Labs Labs: Laboratory Last Values WBC 6.5 X10^3/uL (3.6-10.0) 06/30/24 03:40 RBC 4.25 X10^6/uL (4.7-6.0) L 06/30/24 03:40 Hgb 13.6 g/dL (13.5-18.0) 06/30/24 03:40 Hct 40.8 % (42.0-54.0) L 06/30/24 03:40 MCV 95.9 fL (80.0-100.0) 06/30/24 03:40 MCH 31.9 pg (27.0-34.0) 06/30/24 03:40 MCHC 33.3 g/dL (33.0-35.0) 06/30/24 03:40 RDW 19.2 % (11.6-16.5) H 06/30/24 03:40 Plt Count 151 X10^3/uL (150.0-450.0) 06/30/24 03:40 MPV 9.9 fL (7.4-11.0) 06/30/24 03:40 Neut % (Auto) 69.8 % (42.0-75.0) 06/30/24 03:40 Lymph % (Auto) 14.3 % (21.0-51.0) L 06/30/24 03:40 [place] % (Auto) 13.4 % (0.0-13.0) H 06/30/24 03:40 Eos % (Auto) 1.8 % (0.9-2.9) 06/30/24 03:40 Baso % (Auto) 0.7 % (0.2-1.0) 06/30/24 03:40 Neut # (Auto) 4.6 x10^3/uL (2.2-4.8) 06/30/24 03:40 Lymph # (Auto) 0.9 X10^3/uL (1.3-2.9) L 06/30/24 03:40 [place] # (Auto) 0.9 x10^3/uL (0.3-0.8) H 06/30/24 03:40 Eos # (Auto) 0.1 x10^3/uL (0.0-0.2) 06/30/24 03:40 Baso # (Auto) 0.0 X10^3/uL (0.0-0.1) 06/30/24 03:40 Absolute Nucleated RBC 0.3 /100WBC 06/30/24 03:40 Sodium 134 mmol/L (136-145) L 06/30/24 03:40 Corrected Sodium TNP 06/30/24 03:40 Potassium 3.5 mmol/L (3.5-5.1) 06/30/24 03:40 Chloride 93 mmol/L (98-107) L 06/30/24 03:40 Carbon Dioxide 33.3 mmol/L (21-32) H 06/30/24 03:40 BUN 41 mg/dL (7-18) H 06/30/24 03:40 Creatinine 1.47 mg/dL (0.70-1.30) H 06/30/24 03:40 Est GFR (MDRD) Af Amer > 60 (>60) 06/30/24 03:40 Est GFR (MDRD) Non-Af 50 (>60) L 06/30/24 03:40 Glucose 77 mg/dL (65-99) 06/30/24 03:40 Calcium 8.8 mg/dL (8.5-10.1) 06/30/24 03:40 Corrected Calcium 9.8 mg/dL (8.5-10.1) 06/30/24 03:40 Magnesium 2.5 mg/dL (2.0-2.9) 06/30/24 03:40 Total Bilirubin 3.30 mg/dL (0.2-1.0) H 06/30/24 03:40 AST 28 Units/L (15-37) 06/30/24 03:40 ALT 21 Units/L (12-78) 06/30/24 03:40 Alkaline Phosphatase 101 Units/L (46-116) 06/30/24 03:40 Ammonia 30 umol/L (11-32) 06/30/24 03:40 B-Natriuretic Peptide 3170 pg/mL (0-79) H 06/29/24 22:45 Total Protein 6.6 g/dL (6.4-8.2) 06/30/24 03:40 Albumin 2.7 g/dL (3.4-5.0) L 06/30/24 03:40 Globulin 3.9 g/dL (2.5-4.5) 06/30/24 03:40 Albumin/Globulin Ratio 0.7 Ratio (1.1-2.1) L 06/30/24 03:40 Triglycerides 34 mg/dL (0-150) 06/30/24 03:40 Cholesterol 85 mg/dL (0-200) 06/30/24 03:40 LDL Cholesterol, Calc 56 mg/dL (0-100) 06/30/24 03:40 HDL Cholesterol 22 mg/dL (40-60) L 06/30/24 03:40 Cholesterol/HDL Ratio 3.9 (0.0-5.0) 06/30/24 03:40 Specimen Type Clean catch urine 06/29/24 22:49 Urine Color Dark yellow (YELLOW) 06/29/24 22:49 Urine Appearance Cloudy (CLEAR) 06/29/24 22:49 Urine pH 5.0 (5.0 - 8.0) 06/29/24 22:49 Ur Specific [place] 1.025 (1.000-1.030) 06/29/24 22:49 Urine Protein 3+ (NEGATIVE) 06/29/24 22:49 Urine Glucose (UA) 1+ (NEGATIVE) 06/29/24 22:49 Urine Ketones Negative (NEGATIVE) 06/29/24 22:49 Urine Blood 5+ (NEGATIVE) 06/29/24 22:49 Urine Nitrite Negative (NEGATIVE) 06/29/24 22:49 Urine Bilirubin Negative (NEGATIVE) 06/29/24 22:49 Urine Urobilinogen 1+ (NORMAL) 06/29/24 22:49 Ur Leukocyte Esterase 2+ (NEGATIVE) 06/29/24 22:49 Urine RBC 5-10 /HPF (0-3) A 06/29/24 22:49 Urine WBC Tntc /HPF (0-5) A 06/29/24 22:49 Ur Squamous Epith Cells Few /HPF (NEGATIVE) 06/29/24 22:49 Amorphous Sediment 1+ /HPF (NEGATIVE) 06/29/24 22:49 Urine Bacteria 1+ /HPF (NEGATIVE) 06/29/24 22:49 Urine Mucus Moderate /HPF (NEGATIVE) 06/29/24 22:49 Ur Culture Indicated? No/not indicated 06/29/24 22:49 Assessment/Plan (1) Scrotal bleeding: Hospital Course Hospital Course: Patient is a 73-year-old male with a history of CHF, cirrhosis, diabetes, hypertension presenting from [facility] to the ER due to a scratch on his scrotum that resulted in bleeding. In the ER bleeding seem to have resolved on its own. Patient was admitted for observation. Labs: WBC 6.5, hemoglobin 13.6, platelets 151, sodium 134, potassium 3.5, creatinine 1.47, glucose 77, UA negative, chest x-ray negative. Patient was observed in on exam no bleeding noted. No other concerns as patient appears to be at baseline. Patient was discharged in stable condition back to [facility]. Discharge Medications Discharge Medications: Prescriptions: Discharge Plan Discharge Plan Patient Disposition: [facility] Condition: Stable Health Concerns: Post Hospitalization: new medications and changes needed to prevent readmission or further decline. Pt educated and given instructions on all concerns. Care Plan Goals: Problem: Pain/Alteration in Comfort Goal: Improve/ Resolve Pain; Achieve Pain Tolerance Instructions: Take pain medications as prescribed. Contact your primary care provider if your pain is unrelieved or worsens. Follow up with primary care provider as directed. Plan of Treatment: Continue with present treatment and follow up plan. Pt is to keep follow up appointment as instructed and take medications as ordered. Assessment: No distress noted. Prescriptions: No Action carvedilol 3.125 mg tablet 3.125 mg PO BID escitalopram oxalate 10 mg tablet 10 mg PO QDAY Xarelto 20 mg tablet 20 mg PO QDAY dapagliflozin propanediol [Farxiga] 10 mg tablet 10 mg PO QDAY Aquaphor Original 41 % ointment 1 applic topical Q4H PRN Orders to Discharge Patient Discharge Orders: Discharge (Routine); Ordered 06/30/24 Ordered By: Jose Bob Follow ups/Referrals Follow ups/Referrals: Kemal Owusu [Primary Care Provider] - 3 days Instructions Stand Alone Forms: Find Help Web Site, Post Hospital Follow Up Care
== END 2024-06-30 10:40 ==
LOC: ICU 21:32 → ER 21:32 → ICU 06-30 02:50
PROVIDERS: ADMIT Internal Medicine; ATTEND Internal Medicine